=== PATIENT | female | born 1995 | race Caucasian/White ===

== ENCOUNTER → 2022-05-26 11:07 | Outpatient (BNVA) | payer BC, SELFPAY | PROVIDERS: Family Provider Family Medicine; Visit Provider Obstetrics & Gynecology | DX: O09.899 Supervision of other high risk pregnancies, unspecified trimester (principal); Z3A.00 Weeks of gestation of pregnancy not specified | CPT/HCPCS: 80307; 84315; 84443; 85025; 86592; 86762; 86803; 86850; 86900; 87086; 87340; 87491; 87591; 87661; 87806 ==

== ENCOUNTER → 2022-06-23 08:28 | Outpatient (BNVA) | payer BC, SELFPAY | PROVIDERS: Family Provider Family Medicine; Visit Provider Obstetrics & Gynecology | DX: O09.899 Supervision of other high risk pregnancies, unspecified trimester (principal); Z3A.00 Weeks of gestation of pregnancy not specified | CPT/HCPCS: 84315; 87086 ==

== ENCOUNTER → 2022-08-04 14:13 | Outpatient (BNVA) | payer BC, SELFPAY | PROVIDERS: Family Provider Family Medicine; Visit Provider Obstetrics & Gynecology | DX: O09.899 Supervision of other high risk pregnancies, unspecified trimester (principal); Z3A.00 Weeks of gestation of pregnancy not specified; E05.90 Thyrotoxicosis, unspecified without thyrotoxic crisis or storm | CPT/HCPCS: 84315; 84443 ==

== ENCOUNTER → 2022-09-21 11:50 | Outpatient (BNVA) | payer BC, SELFPAY | PROVIDERS: Family Provider Family Medicine; Visit Provider Obstetrics & Gynecology | DX: O09.899 Supervision of other high risk pregnancies, unspecified trimester (principal); E05.90 Thyrotoxicosis, unspecified without thyrotoxic crisis or storm; Z3A.00 Weeks of gestation of pregnancy not specified | CPT/HCPCS: 84315; 84443; 85025 ==

== ENCOUNTER → 2022-10-20 08:15 | Outpatient (BNVA) | payer BC, SELFPAY | PROVIDERS: Family Provider Family Medicine; Visit Provider Obstetrics & Gynecology | DX: Z34.90 Encounter for supervision of normal pregnancy, unspecified, unspecified trimester (principal); R82.90 Unspecified abnormal findings in urine | CPT/HCPCS: 84315; 87086 ==

== ENCOUNTER → 2022-11-01 14:25 | Outpatient (BNVA) | payer BC, SELFPAY | PROVIDERS: Family Provider Family Medicine; Visit Provider Obstetrics & Gynecology | DX: O09.899 Supervision of other high risk pregnancies, unspecified trimester (principal); Z3A.00 Weeks of gestation of pregnancy not specified | CPT/HCPCS: 84315; 85025; 87086 ==

== ENCOUNTER → 2022-11-15 15:40 | Outpatient (BNVA) | payer BC, SELFPAY | PROVIDERS: Family Provider Family Medicine; Visit Provider Obstetrics & Gynecology | DX: O09.899 Supervision of other high risk pregnancies, unspecified trimester (principal) | CPT/HCPCS: 84315; 87081 ==

== ENCOUNTER → 2022-11-24 10:20 | Outpatient (BNVA) | payer BC, SELFPAY | PROVIDERS: Family Provider Family Medicine; Visit Provider Obstetrics & Gynecology | DX: O09.899 Supervision of other high risk pregnancies, unspecified trimester (principal) | CPT/HCPCS: 84315; 87086 ==

== ENCOUNTER 2022-11-29 05:26 | Day surgery (SDC) | payer BC, SELFPAY ==
[2022-11-29] VITALS (13 sets, daily range): BP systolic 109–124; BP diastolic 72–87; PULSE 99–147; RESP 15; TEMP 35.9; O2SAT 91–100; BMI 28.3
[2022-11-29 05:51] LABS: Basophils % 0.6 %; Eosinophils # 0.1 10^3/uL (0.0-0.8); Hematocrit 35.6 % (37.0-47.0); Hemoglobin 11.8 g/dL (11.5-15.3); Lymphocytes % 20.4 %; Mean Corpuscular HGB Conc 33.1 g/dL (30.0-36.0); Mean Corpuscular Hemoglobin 29.9 pg (28.0-34.0); Mean Corpuscular Volume 90.1 fl (81-99); Mean Platelet Volume 9.4 fL (7.4-10.4); Monocytes # 0.5 10^3/uL (0.2-0.9); Neutrophils # 3.35 10^3/uL (1.8-7.7); Neutrophils % 67.2 %; Nucleated Red Blood Cells % 0 %; Platelet Count 224 10^3/cmm (130-400); Red Blood Count 3.95 10^6/uL (4.1-5.3); Red Cell Distribution Width 13.7 % (12.1-15.1)
[2022-11-29] MEDS: terbutaline 1 mg/mL INJ 0.25 MG SUBCUT (07:04)
--- NOTE | 2022-11-29 07:07 | US_ITS ---
WS: [id number] Limited obstructive ultrasound. HISTORY: Attempted external version of the fetus. Fetus is in breech position. Ultrasound was used to monitor heart rate. During the initial attempted version the heart rate is 150 bpm. Heart rate ranged between 150 and 164 bpm during the attempted version of the fetus. US/US OB limited [id number] IMPRESSION: Normal heart rate during obstetrical procedure.
[2022-11-29] MEDS: acetaminophen 500 mg Tablet 1000 MG PO (07:42)
--- NOTE | 2022-11-29 07:50 | PC.NURSE ---
0704 terbutaline subcut given in R upper arm. 0710 ultrasound at bedside. 0712 Dr. Lott in room for procedure. Time out by this RN done at 0718. Start time of procedure at 0718 and 40 seconds. Version stopped at 0719:40, FHT of 164 by bedside u/s. Version restarted at 0720:10. Version stopped at 0721:53 FHT of 164 received by u/s tech. Version restarted at 0723:05, stopped at 0724. Version started at 0724:15, stopped at 0724:43 FHT of 160. Procedure ended at this time.
--- NOTE | 2022-11-29 08:01 | PM.OPHPUD ---
Labor & Delivery H&P Update Date of Procedure: November 29, 2022 Date H&P Performed: 11/24/22 H&P update information: I have reviewed H&P completed within last 30 days, I have examined patient prior to procedure and Changes to prior documentation as noted here Changes to previous documentation: The patient is here for an external cephalic version Admission Diagnosis: iup@ 38 weeks Primary indication for procedure: breech presentation Planned procedure: Operation Date: 11/29/22 07:00 Proposed Procedures p Cephalic Eversion 33839,Q32.1XXO(Not Applicable) - Anne Lott MD Related Problem List Diagnoses (1) Breech presentation:
--- NOTE | 2022-11-29 08:03 | PM.OP ---
Operative Report Date of procedure: November 29, 2022 Pre-op diagnosis: breech presentation Post-op diagnosis: same Post-op findings: continued breech presentation Procedure done: external cephalic version Surgeon: diamond Estimated blood loss (mL): 0 Complications: none Condition: stable Disposition: no change Procedure: After informed consent was obtained the patient was placed in the dorsal supine position. The insurance claims processor confirmed position of the baby. heart rate was 164. The head was in the right upper quadrant, the spine was on the left and the breech was midline. The patient was given 1 dose of terbutaline. monitoring showed a reactive tracing. Lubrication was placed onto the abdomen and the vertex moved to the left and an attempt at a backwards roll. The head moved to the midline. heart rate was confirmed at 164. Again I attempted with the head to move it to the left for a backwards roll. It was moved to the left upper quadrant now heart rate was confirmed at 164. My assistant manager retail then attempted to push the breech out of the pelvis while I attempted to remove the vertex down. The patient was intolerant to this. She was stiffening her muscles and it was apparent that we were causing her pain. I asked her if she wanted to stop and she said yes. heart rate was 164. The patient was placed back on the monitor. She was given a dose of RhoGAM. A reactive heart tracing was obtained. The patient was dismissed in stable condition. We discussed other methods such as acupuncture to try to see if she could get the baby to move to a cephalic presentation. She is trying to decide if she wants to schedule a at 39 weeks or weight and come in in labor. We will discuss this more at her next visit.
--- NOTE | 2022-11-29 08:13 | P.DS_ITS ---
Discharge Providers Date of Admission: 11/29/22 05:27 Date of Discharge: November 29, 2022 Attending Provider at Admission: Anne Lott MD Attending Provider at Discharge: Anne Lott MD Diagnoses at Discharge Discharge Diagnosis (1) Breech presentation: Status: Acute Reason for Visit Reason for Visit: Version Hospital Course Hospital Course The patient was admitted for external cephalic version. This was unsuccessful. She and the baby did well postprocedure and she was discharged to home. She was given rhogam prior to discharge. Discharge Data Studies Completed and Pending Pending at discharge Category Date Time Status Complete Crossmatch Stat Lab 11/29/22 07:08 Ordered Rhogam [Rho D Immune Globulin] Stat Lab 11/29/22 07:08 Ordered Type and Screen Stat Lab 11/29/22 07:08 Ordered US OB limited [id number] Stat Ultrasound 11/29/22 07:07 Taken Laboratory Results WBC 5.0 10^3/uL (4.0-10.0) 11/29/22 05:40 RBC 3.95 10^6/uL (4.1-5.3) L 11/29/22 05:40 Hgb 11.8 g/dL (11.5-15.3) 11/29/22 05:40 Hct 35.6 % (37.0-47.0) L 11/29/22 05:40 MCV 90.1 fl (81-99) 11/29/22 05:40 MCH 29.9 pg (28.0-34.0) 11/29/22 05:40 MCHC 33.1 g/dL (30.0-36.0) 11/29/22 05:40 RDW 13.7 % (12.1-15.1) 11/29/22 05:40 Plt Count 224 10^3/cmm (130-400) 11/29/22 05:40 MPV 9.4 fL (7.4-10.4) 11/29/22 05:40 Neut % (Auto) 67.2 % 11/29/22 05:40 Lymph % (Auto) 20.4 % 11/29/22 05:40 Gillespie % (Auto) 9.0 % 11/29/22 05:40 Eos % (Auto) 2.0 % 11/29/22 05:40 Baso % (Auto) 0.6 % 11/29/22 05:40 Neut # (Auto) 3.35 10^3/uL (1.8-7.7) 11/29/22 05:40 Lymph # (Auto) 1.0 10^3/uL (0.8-4.8) 11/29/22 05:40 Gillespie # (Auto) 0.5 10^3/uL (0.2-0.9) 11/29/22 05:40 Eos # (Auto) 0.1 10^3/uL (0.0-0.8) 11/29/22 05:40 Baso # (Auto) 0.0 10^3/uL (0.0-0.1) 11/29/22 05:40 Nucleated RBC % (auto) 0 % 11/29/22 05:40 Nucleated RBCs # 0.0 /100WBC 11/29/22 05:40 Vitals Last Vital Signs Pulse 112 H 11/29/22 07:45 BP 124/79 11/29/22 07:45 Pulse Ox 99 11/29/22 07:29 O2 Del Method 11/29/22 04:58 Discharge Plan Discharge Condition: Stable Prescriptions: No Action prenat.vits,giselle,woz-yymx-syygc Tablet 1 tab PO DAILY esomeprazole magnesium 20 mg capsule,delayed release(DR/EC) 20 mg PO DAILY ferrous sulfate 325 mg (65 mg iron) tablet 325 mg PO DAILY Patient Instructions: Opioid Safety Discharge Attestations Time Spent in Discharge Care*: less than 30 min Quality Metrics Clinical Quality Measures [ No reported AMI, CVA or VTE this stay] Coding Level of Care Code Acute Chg FW DC note Diagnoses Breech presentation O32.1XX0
== END 2022-11-29 10:37 | disposition home or self-care (01) ==
LOC: OPOB 05:27 → OBGYN 05:31
PROVIDERS: Family Provider Family Medicine; Visit Provider Obstetrics & Gynecology
DX: O32.1XX0 Maternal care for breech presentation, not applicable or unspecified (principal); Z3A.38 38 weeks gestation of pregnancy
CPT/HCPCS: 36430; 59025; 59412; 76815; 85025; 86850; 86900; 90384; 96372; 99211; J3105

== ENCOUNTER 2022-12-06 10:06 | Inpatient (IN) | payer BC, SELFPAY ==
[2022-12-06] VITALS (19 sets, daily range): BP systolic 101–117; BP diastolic 52–87; PULSE 67–106; RESP 16–18; TEMP 36.6–36.9; O2SAT 97–100; BMI 29.2
[2022-12-06 10:50] LABS: Basophils % 0.2 %; Eosinophils # 0.1 10^3/uL (0.0-0.8); Eosinophils % 0.5 %; Hematocrit 34.8 % (37.0-47.0); Hemoglobin 11.6 g/dL (11.5-15.3); Lymphocytes # 1.6 10^3/uL (0.8-4.8); Lymphocytes % 17.4 %; Mean Corpuscular HGB Conc 33.3 g/dL (30.0-36.0); Mean Corpuscular Hemoglobin 30.3 pg (28.0-34.0); Mean Corpuscular Volume 90.9 fl (81-99); Mean Platelet Volume 9.6 fL (7.4-10.4); Monocytes # 0.5 10^3/uL (0.2-0.9); Monocytes % 5.8 %; Neutrophils # 6.95 10^3/uL (1.8-7.7); Neutrophils % 75.4 %; Nucleated Red Blood Cells % 0 %; Platelet Count 226 10^3/cmm (130-400); Red Blood Count 3.83 10^6/uL (4.1-5.3); Red Cell Distribution Width 13.3 % (12.1-15.1); White Blood Count 9.2 10^3/uL (4.0-10.0)
[2022-12-06] MEDS: lactated ringers 1,000 ML 999 ML IV (11:00)
--- NOTE | 2022-12-06 11:19 | PM.OPHPUD ---
Labor & Delivery H&P Update Date of Procedure: December 06, 2022 Date H&P Performed: 11/24/22 H&P update information: I have reviewed H&P completed within last 30 days, I have examined patient prior to procedure and No changes to prior documentation Admission Diagnosis: . IUP@39 weeks, breech presentation. Preop diagnosis: Breech presentation Planned procedure: primary Related Problem List Diagnoses (1) Breech presentation: (2) Rh negative state in antepartum period: (3) Supervision of other high-risk :
[2022-12-06] MEDS: famotidine 20 mg/2 mL INJ IVP (12:00)
[2022-12-06] MEDS: citric acid-sodium citrate 30 mL UDC PO (12:00)
[2022-12-06] MEDS: metoclopramide 5 mg/mL SDV 2 mL 10 MG IVP (12:00)
--- NOTE | 2022-12-06 13:35 | P.OP_ITS ---
Operative Report Date of procedure: December 06, 2022 Pre-op diagnosis: Preop Diagnosis Breech presentation Post-op diagnosis: same Post-op diagnosis: delivered Post-op findings: term female infant in the betsy breech presentation Procedure done: primary Specimens removed/disposition: placenta discarded Surgeon: Anne Lott Anesthesia: Other (Spinal) Estimated blood loss (mL): 400 IV fluids (mL): 1,000 Urine output (mL): 50 Complications: none Condition: stable Disposition: PACU Procedure: The patient was taken to the operating room where spinal anesthesia was administered and found to be adequate. She was prepped and draped in the normal sterile fashion in the dorsal supine position with a leftward tilt. A Pfannenstiel skin incision was made and carried down to the underlying layer of fascia. The fascia was nicked in the midline and extended laterally with the Daniels scissors. The fascia was then tented up and the rectus muscles dissected off sharply. The rectus muscles were and the peritoneum entered bluntly with the digit. The peritoneal incision was extended superiorly and inferiorly with good visualization of the bladder. The Filipe O retractor was placed. It was clear of any bowel or omentum. The bladder flap was created sharply with the Metzenbaum scissors. A low transverse uterine incision was made and carried down to the bag of water. The bag of water was ruptured and the uterine incision extended cephalocaudad. The breech was grasped and brought through the incision. The body, arms and shoulders were delivered, followed by the head. The baby was allowed to rest, while being dried, for 1 minute and then the cord was clamped and cut. The baby was handed to the waiting ostrich farm worker. The placenta was delivered by expression. The uterus was exteriorized and cleared of all clots and debris. The uterine incision was closed with 0 Vicryl in a running fashion. A second imbricating layer of 3-0 Monocryl was used to close the uterus. The bladder flap was closed with 3-0 Monocryl. There was excellent hemostasis. The Filipe O retractor was removed. The uterus was returned to the abdomen. The peritoneum was closed with 3-0 Monocryl, incorporating the rectus muscle. The fascia was closed with 0 Vicryl in 2 separate sutures overlapping in the midline. The skin was closed with absorbable gabi. Apgars on baby 9 at 1 minute and 9 at 5 minutes. weight 7 pounds 11 ounces. Mother and baby were stable post delivery.
[2022-12-06] MEDS: ketorolac 30 mg/mL INJ IVP (20:31)
[2022-12-07 02:01] LABS: Hematocrit 29.5 % (37.0-47.0); Hemoglobin 9.6 g/dL (11.5-15.3); Mean Corpuscular HGB Conc 32.5 g/dL (30.0-36.0); Mean Corpuscular Volume 92.2 fl (81-99); Mean Platelet Volume 9.5 fL (7.4-10.4); Platelet Count 172 10^3/cmm (130-400); Red Cell Distribution Width 13.2 % (12.1-15.1); White Blood Count 9.4 10^3/uL (4.0-10.0)
[2022-12-07] MEDS: ketorolac 30 mg/mL INJ IVP (02:29)
--- NOTE | 2022-12-07 07:23 | PC.NURSE ---
Discussed with Ton in lab that patient will need rhogam as her blood type is O negative and cord blood is resulted as O positive. Ton states she will get it ready.
--- NOTE | 2022-12-07 08:03 | PM.PN ---
Subjective Subjective: The patient had no issues overnight Vitals/I&O/Wt Last Vital Signs Temp 97.9 F 12/06/22 22:05 Pulse 78 12/06/22 22:05 Resp 17 12/06/22 22:05 BP 106/87 12/06/22 22:05 Pulse Ox 99 12/06/22 22:05 O2 Del Method 12/06/22 22:05 12/06/22 12/07/22 12/07/22 22:59 06:59 14:59 Intake Total 2000 / 3000 Output Total 300 / 350 2100 / 2450 Balance -300 / 650 -100 / 550 Weight last 48 hrs Weight 176 lb Physical Exam Narrative: The patient is doing well this morning. Tolerating a regular diet, ambulating, urinating without difficulty. Breast feeding is going well. Const: COMMON NORMALS: no acute distress, average body habitus, patient oriented x3, no limitations, healthy appearing, alert and well nourished GENERAL APPEARANCE: cooperative, comfortable, well kempt and well developed ORIENTATION/CONSCIOUSNESS: Yes awake, Yes oriented to person, Yes oriented to place and Yes oriented to time Resp: COMMON NORMALS: normal respiratory effort EFFORT & INSPECTION: Yes able to speak in complete sentences GI: COMMON NORMALS: Soft to palpation and non-tender PALPATION: Yes Soft to palpation Extremity: COMMON NORMALS: no calf tenderness Neuro: COMMON NORMALS: patient oriented x3 SENSORIUM/ORIENTATION: Yes alert, Yes oriented to person, Yes oriented to place and Yes oriented to time Psych: APPEARANCE: Yes well kempt Skin: WOUNDS: Yes surgical site (clean/dry/covered) Urinary Catheter Management: Vargas: Cath Placed During This Visit: yes, but has since been removed by the nurse Reason for Continuing Indwelling Catheter: Decision to DC Catheter Urinary Catheter Date of Insertion: 12/06/22 Urinary Catheter Time of Insertion: 12:40 Date Urinary Catheter Removed: 12/07/22 Time Urinary Catheter Discontinued: 06:26 Data 12/07/22 01:50 Attestations Medical Necessity Statement*: The patient had a . She will be here for 2 nights. Coding Level of Care Code Acute Code for Chg Fwd
[2022-12-07] MEDS: docusate sodium 100 mg Capsule PO ×2 (09:22→17:20)
[2022-12-07] MEDS: lanolin oint 7 gm 1 APPLIC TOPICAL (09:22)
[2022-12-07] MEDS: prenatal vitamin Capsule 1 CAP PO (09:22)
[2022-12-07 09:34] VITALS: BP 111/73; PULSE 87; RESP 14; TEMP 36.6; O2SAT 97
[2022-12-07] MEDS: ibuprofen 800 mg tablet PO ×3 (09:40→21:25)
[2022-12-07] MEDS: HYDROcodone-acetaminophen 5-325 mg Tablet PO ×3 (11:02→22:30)
[2022-12-07 15:55] VITALS: BP 108/68; PULSE 89; RESP 16; O2SAT 98
[2022-12-07 23:26] VITALS: BP 104/69; PULSE 88; RESP 15; TEMP 36.6; O2SAT 97
[2022-12-08] MEDS: HYDROcodone-acetaminophen 5-325 mg Tablet PO ×3 (02:33→10:39)
[2022-12-08 05:31] VITALS: BP 111/70; PULSE 90; RESP 15; TEMP 37.1; O2SAT 96
--- NOTE | 2022-12-08 07:54 | PM.DCS ---
Discharge Providers Date of Admission: 12/06/22 10:06 Date of Discharge: December 08, 2022 Attending Provider at Admission: Anne Lott MD Attending Provider at Discharge: Anne Lott MD Diagnoses at Discharge Discharge Diagnosis (1) Breech presentation: Status: Acute (2) Rh negative state in antepartum period: Status: Acute (3) Supervision of other high-risk : Status: Acute Reason for Visit Reason for Visit: C Section Hospital Course Hospital Course The patient was admitted for primary at term, for breech. She did well postoperatively and was ready for discharge on day #2. Physical Exam Narrative: The patient is doing well today. No concerns. is going well. Pain is well controlled. She is ambulating and tolerating a regular diet. She is requesting to be discharged. Const: COMMON NORMALS: no acute distress, average body habitus, patient oriented x3, no limitations, healthy appearing, alert and well nourished Resp: COMMON NORMALS: normal respiratory effort EFFORT & INSPECTION: Yes able to speak in complete sentences GI: COMMON NORMALS: Soft to palpation and non-tender PALPATION: Yes Soft to palpation Extremity: COMMON NORMALS: no calf tenderness Neuro: COMMON NORMALS: patient oriented x3 SENSORIUM/ORIENTATION: Yes alert Psych: COMMON NORMALS: mental status grossly normal, Normal thought process present, cooperative, normal affect and speech normal SPEECH: Yes normal speech THOUGHT PROCESS: Normal thought process present Urinary Catheter Management: Vargas: Cath Placed During This Visit: yes, but has since been removed by the nurse Reason for Continuing Indwelling Catheter: Decision to DC Catheter Urinary Catheter Date of Insertion: 12/06/22 Urinary Catheter Time of Insertion: 12:40 Date Urinary Catheter Removed: 12/07/22 Time Urinary Catheter Discontinued: 06:26 Discharge Data Studies Completed and Pending Laboratory Results WBC 9.4 10^3/uL (4.0-10.0) 12/07/22 01:50 RBC 3.20 10^6/uL (4.1-5.3) L 12/07/22 01:50 Hgb 9.6 g/dL (11.5-15.3) L 12/07/22 01:50 Hct 29.5 % (37.0-47.0) L 12/07/22 01:50 MCV 92.2 fl (81-99) 12/07/22 01:50 MCH 30.0 pg (28.0-34.0) 12/07/22 01:50 MCHC 32.5 g/dL (30.0-36.0) 12/07/22 01:50 RDW 13.2 % (12.1-15.1) 12/07/22 01:50 Plt Count 172 10^3/cmm (130-400) 12/07/22 01:50 MPV 9.5 fL (7.4-10.4) 12/07/22 01:50 Neut % (Auto) 75.4 % 12/06/22 10:28 Lymph % (Auto) 17.4 % 12/06/22 10:28 Haralson % (Auto) 5.8 % 12/06/22 10:28 Eos % (Auto) 0.5 % 12/06/22 10:28 Baso % (Auto) 0.2 % 12/06/22 10:28 Neut # (Auto) 6.95 10^3/uL (1.8-7.7) 12/06/22 10:28 Lymph # (Auto) 1.6 10^3/uL (0.8-4.8) 12/06/22 10:28 Haralson # (Auto) 0.5 10^3/uL (0.2-0.9) 12/06/22 10:28 Eos # (Auto) 0.1 10^3/uL (0.0-0.8) 12/06/22 10:28 Baso # (Auto) 0.0 10^3/uL (0.0-0.1) 12/06/22 10:28 Nucleated RBC % (auto) 0 % 12/06/22 10:28 Nucleated RBCs # 0.0 /100WBC 12/06/22 10:28 Blood Type O Negative 12/06/22 10:28 Rho(D) Type Negative 12/06/22 10:28 Antibody Screen Positive 12/06/22 10:28 Antibody Identification Anti-D 12/06/22 10:28 Screen Negative (Negative) 12/07/22 01:50 Vitals Last Vital Signs Temp 98.8 F 12/08/22 05:31 Pulse 90 12/08/22 05:31 Resp 15 12/08/22 05:31 BP 111/70 12/08/22 05:31 Pulse Ox 96 12/08/22 05:31 O2 Del Method 12/08/22 05:31 Discharge Plan Discharge Patient Disposition: Home Condition: Stable Prescriptions: New docusate sodium 100 mg Capsule 100 mg PO BID Qty: 60 0RF ibuprofen 800 mg Tablet 800 mg PO TID Qty: 30 0RF hydrocodone-acetaminophen 5-325 mg Tablet 1 tab PO Q4H PRN (Reason: Moderate To Severe Pain) Qty: 30 0RF Continued prenat.vits,giselle,rqr-nkqi-mmfts Tablet 1 tab PO DAILY esomeprazole magnesium 20 mg capsule,delayed release(DR/EC) 20 mg PO DAILY ferrous sulfate 325 mg (65 mg iron) tablet 325 mg PO DAILY Discharge Orders: Discharge Order (Routine); Ordered 12/08/22 Ordered By: Anne Lott Patient Instructions: Opioid Safety Discharge Attestations Time Spent in Discharge Care*: less than 30 min Quality Metrics Clinical Quality Measures [ No reported AMI, CVA or VTE this stay] Coding Level of Care Code Acute Chg [facility] note Diagnoses Breech presentation O32.1XX0 Rh negative state in antepartum period O26.899; Z67.91 Supervision of other high-risk O09.899
[2022-12-08] MEDS: prenatal vitamin Capsule 1 CAP PO (09:27)
[2022-12-08] MEDS: ibuprofen 800 mg tablet PO (09:27)
[2022-12-08] MEDS: docusate sodium 100 mg Capsule PO (09:27)
[2022-12-08 10:10] VITALS: BP 113/74; PULSE 95; RESP 17; TEMP 36.9; O2SAT 97
== END 2022-12-08 10:50 | disposition home or self-care (01) | DRG 787 ==
LOC: OPOB 10:09 → OBGYN 10:10 → OPOB 13:09 → OBGYN 13:10
PROVIDERS: Admitting Provider Obstetrics & Gynecology; Visit Provider Obstetrics & Gynecology
PROC: 10D00Z1 Extraction of Products of Conception, Low, Open Approach (ICD-10-PCS; CPT 59514; principal; 2022-12-06 12:00)
DX: O32.1XX0 Maternal care for breech presentation, not applicable or unspecified (principal); O36.0930 Maternal care for other rhesus isoimmunization, third trimester, not applicable or unspecified; O99.344 Other mental disorders complicating childbirth; O99.284 Endocrine, nutritional and metabolic diseases complicating childbirth; E05.90 Thyrotoxicosis, unspecified without thyrotoxic crisis or storm; Z3A.39 39 weeks gestation of pregnancy; Z37.0 Single live birth; F41.8 Other specified anxiety disorders
CPT/HCPCS: 36415; 51702; 59025; 59409; 80503; 85025; 85027; 85460; 86850; 86870; 86900; 90384; 96374; 96376; 99211; J1885; J2274; J2405; J2590; J2765; J3010; J3490; J7120

== ENCOUNTER 2025-04-15 10:12 | Outpatient (CLI) | payer OTHER, SELFPAY ==
--- NOTE | 2025-04-15 10:19 | US_ITS ---
WS: [id number] US transvaginal [id number] HISTORY: MENORRHAGIA COMPARISON: None available. Uterus: 7.5 cm x 3.9 cm x 3.6 cm. Normal size anteverted uterus. No fibroid or mass. Endometrium: 0.7 cm. Normal. Right ovary: RIGHT ovary is not identified. No RIGHT adnexal mass. Left ovary: Cystic mass in the LEFT adnexa with good through transmission. Cyst measures 4.9 x 4.4 x 4.2 cm. A separate LEFT ovary is not identified. No free fluid in the cul-de-sac. US/US transvaginal [id number] IMPRESSION: 1. O-RADS 2; almost certainly benign. LEFT ovarian cyst. No solid component. N o additional imaging follow-up necessary. 2. RIGHT ovary is not identified. 3. Normal endometrium.
== END 2025-04-15 10:13 | disposition home or self-care (01) ==
PROVIDERS: PCP Family Medicine; Visit Provider Family Medicine
DX: N92.0 Excessive and frequent menstruation with regular cycle (principal); N83.202 Unspecified ovarian cyst, left side
CPT/HCPCS: 76830

== ENCOUNTER 2025-09-15 08:41 | Outpatient (CLI) | payer OTHER, SELFPAY ==
--- NOTE | 2025-09-15 08:49 | MM_ITS ---
WS: [id number] DIAGNOSTIC BILATERAL DIGITAL BREAST TOMOSYNTHESIS MAMMOGRAPHY WITH CAD RIGHT breast ultrasound, limited HISTORY: R LATERAL BREAST MASS AT 9 O'CLOCK COMPARISON: None available. TECHNIQUE: Bilateral craniocaudad, mediolateral oblique, and mediolateral views are submitted with tomosynthesis and SM. Spot compression RIGHT CC and MLO. Computer aided detection utilized. Breast composition: The breasts are heterogeneously dense, which may obscure small masses. In the upper outer quadrant of the RIGHT breast near 9-10 o'clock is an irregular obscured high density mass measuring 8 x 12 x 10 mm. Mild architectural distortion. No suspicious grouping of calcifications. LEFT breast is negative. RIGHT breast ultrasound, limited. Irregular angular heterogeneous mass in the RIGHT breast at 10:00, 4 cm from the nipple. This corresponds to the palpable mass in the mammographic abnormality. Mass measures 1.0 x 0.8 x 1.0 cm. Mild peripheral increased vascularity. No axillary lymph nodes. MM/MM diag BI tomosynthesis [id number] IMPRESSION: BI-RADS: 5 - Highly suggestive of Malignancy FOLLOW UP: Biopsy Recommended Report left on the message line of number provided.
== END 2025-09-15 08:42 | disposition home or self-care (01) ==
PROVIDERS: PCP Nurse Practitioner Family; Visit Provider Nurse Practitioner Family
DX: N63.11 Unspecified lump in the right breast, upper outer quadrant (principal); R92.333 Mammographic heterogeneous density, bilateral breasts; R92.1 Mammographic calcification found on diagnostic imaging of breast
CPT/HCPCS: 76642; 77062; G0279

== ENCOUNTER 2025-09-16 08:53 | Outpatient (CLI) | payer OTHER, SELFPAY ==
--- NOTE | 2025-09-16 09:04 | US_ITS ---
WS: [id number] ULTRASOUND-GUIDED RIGHT BREAST BIOPSY HISTORY: ABNORMAL MAMMOGRAM COMPARISON: 09/15/2025 Procedure, risks and complications are explained to the patient. Medications are reviewed. Consent is obtained. The mass in the RIGHT breast is localized with ultrasound. Mass localizes to 10:00, 4 cm from the nipple. Skin is cleansed with ChloraPrep and anesthetized with 1% buffered lidocaine. Small dermatome is made. Under sterile conditions mass is biopsied with a 14-gauge Achieve needle. Multiple core biopsies are performed. Material placed in formalin and sent to pathology for review. No complications encountered. Breast tissue marker ([employer] ultrasound enhanced ribbon): Single. Patient left the radiology suite with no complications. Patient is instructed to return to [facility] or call with any concerns. US/[place] [id number] IMPRESSION: 1. Uncomplicated core needle biopsy RIGHT breast mass at 10:00. 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 Breast prognostic profile is ordered and pending. RECOMMENDATION: Follow-up with oncology and breast surgeon.
== END 2025-09-16 08:54 | disposition home or self-care (01) ==
LOC: RAD 08:54
PROVIDERS: PCP Nurse Practitioner Family; Visit Provider Nurse Practitioner Family
DX: C50.411 Malignant neoplasm of upper-outer quadrant of right female breast (principal)
CPT/HCPCS: 19083; 76942; 88305; 88342; 88361; 88374